=== PATIENT | female | born 1990 | race Caucasian/White ===

== ENCOUNTER 2016-10-29 12:29 | Emergency (ER) | payer SELFPAY ==
[~2016-10-29] VITALS: Wt 57.5 kg
[2016-10-29] MEDS ORDERED: ONDANSETRON (ODT) 4 MG TAB ODT STA (12:51)
--- NOTE | 2016-10-29 13:17 | ERA ---
ER Documentation Chief Complaint Date/Time DATE: 10/29/16 TIME: 13:13 Chief Complaint ABD PAIN, VOMITING WITH BLOOD PER PT, ONSET 4 DAYS HPI Patient has a 5-year-old female presenting for generalized abdominal pain. Patient states that she has chronic ulcers in the stomach. Patient claims to have been admitted to another hospital a few weeks ago but left after administration of pain medication. Patient also complains of nausea. Patient denies any bleeding or change in bowel or bladder habits, fever, unable to tolerate p.o. headache, new rashes, and alcohol or drug abuse. There are no other associated manifestations that the patient complains of. ROS All systems reviewed and are negative except as per history of present illness. Medications Home Meds Active Scripts Pantoprazole* (Pantoprazole*) 20 Mg Tablet.dr, 20 MG PO DAILY for 10 Days, TAB Prov:SURY TARANGO PA-C 10/29/16 Famotidine* (Pepcid*) 20 Mg Tablet, 20 MG PO BID for 4 Days, TAB Prov:SURY TARANGO PA-C 10/29/16 PMhx/Soc Medical and Surgical Hx: pt denies Medical Hx, pt denies Surgical Hx History of Surgery: No Anesthesia Reaction: No Hx Neurological Disorder: No Hx Respiratory Disorders: No Hx Cardiac Disorders: No Hx Psychiatric Problems: No Hx Miscellaneous Medical Probl: No Hx Alcohol Use: No Hx Substance Use: No Hx Tobacco Use: No Smoking Status: Never smoker Physical Exam Vitals Vital Signs Date Time Temp Pulse Resp B/P Pulse Ox O2 Delivery O2 Flow Rate FiO2 10/29/16 12:32 98.2 82 17 142/68 98 Physical Exam Const: Ill-appearing 25-year-old female in no acute distress. Head: Atraumatic Eyes: Normal Conjunctiva ENT: Normal External Ears, Nose and Mouth. Neck: Full range of motion..~ No meningismus. Resp: Clear to auscultation bilaterally Cardio: Regular rate and rhythm, no murmurs Abd: Soft, no tenderness to palpation, non distended. Normal bowel sounds. Skin: Rash in the lower abdomen. Striae in the lower abdomen. Back: No midline or flank tenderness Ext: No cyanosis, or edema Neur: Awake and alert Psych: Normal Mood and Affect Result Diagram: 10/29/16 1325 10/29/16 1325 Results 24 hrs Laboratory Tests Test 10/29/16 13:23 10/29/16 13:25 Bedside Urine pH (LAB) 5.5 Bedside Urine Protein (LAB) 1+ Bedside Urine Glucose (UA) Negative Bedside Urine Ketones (LAB) Trace Bedside Urine Blood 2+ Bedside Urine Nitrite (LAB) Negative Bedside Urine Leukocyte Esterase (L Negative White Blood Count 11.310^3/ul Red Blood Count 4.5010^6/ul Hemoglobin 13.1g/dl Hematocrit 39.6% Mean Corpuscular Volume 88.0fl Mean Corpuscular Hemoglobin 29.1pg Mean Corpuscular Hemoglobin Concent 33.1g/dl Red Cell Distribution Width 13.9% Platelet Count 04070^3/UL Mean Platelet Volume 10.6fl Neutrophils % 67.7% Lymphocytes % 22.6% Monocytes % 6.7% Eosinophils % 2.3% Basophils % 0.4% Nucleated Red Blood Cells % 0.0/100WBC Neutrophils # 7.610^3/ul Lymphocytes # 2.510^3/ul Monocytes # 0.810^3/ul Eosinophils # 0.310^3/ul Basophils # 0.010^3/ul Nucleated Red Blood Cells # 0.010^3/ul Sodium Level 141mmol/L Potassium Level 3.4mmol/L Chloride Level 102mmol/L Carbon Dioxide Level 25mmol/L Anion Gap 17 Blood Urea Nitrogen 14mg/dl Creatinine 0.58mg/dl Glucose Level 99mg/dl Calcium Level 9.1mg/dl Total Bilirubin 0.6mg/dl Direct Bilirubin 0.00mg/dl Indirect Bilirubin 0.6mg/dl Aspartate Amino Transf (AST/SGOT) 23IU/L Alanine Aminotransferase (ALT/SGPT) 26IU/L Alkaline Phosphatase 103IU/L Total Protein 7.5g/dl Albumin 4.3g/dl Globulin 3.20g/dl Albumin/Globulin Ratio 1.34 Current Medications Medications (Trade) Dose Ordered Sig/Yamini Route PRN Reason Start Time Stop Time Status Last Admin Dose Admin Ondansetron HCl (Zofran Odt) 4 mg ONCE STAT ODT 10/29/16 12:51 10/29/16 12:55 DC 10/29/16 13:18 Miscellaneous Medication (Gi Cocktail (2)) 40 ml ONCE ONCE PO 10/29/16 14:30 10/29/16 14:31 Famotidine (Pepcid) 20 mg ONCE ONCE PO 10/29/16 14:30 10/29/16 14:31 Procedures/MDM Patient is a 25-year-old male complaining of abdominal pain. Patient says she has a chronic history of abdominal pain. Patient was seen and admitted at another hospital a few weeks ago and left before complete evaluation was done. Patient denies any bleeding from the rectum or urinary tract. Patient denies anorexia. Patient was not tender to palpation. Patient had a rash over the lower abdomen/upper pelvis. We will go ahead and get labs to make sure that the patient is not in any immediate danger of bleeding from the GI tract. Spoke to Dr. Miguel and upon reevaluation patient had a history of abdominal pain lasting only 1 week history of "chronic" abdominal pain spanning only 2-4 weeks. Patient has taken no other medications at home. We will go ahead and give the patient medication for symptom relief. The hospital and then discharge with a prescription for an acid stewart and proton pump inhibitor for symptom relief. Have advised the patient that she should see a primary care provider in the next 1-3 days for further evaluation and chronic management of her condition. Departure Condition: Stable Additional Instructions: See a primary care provider in the next 1-3 days. Return to emergency department if symptoms worsen. SURY TARANGO PA-C Oct 29, 2016 13:17
[2016-10-29 13:23] LABS: URINE BLOOD (Dip) POC 2+ (NEGATIVE)
[2016-10-29 13:33] LABS: ADD SCAN DIFF NO
[2016-10-29 13:35] LABS: BASOPHILS % 0.4 % (0.0-2.0); EOSINOPHILS # 0.3 10^3/ul (0.0-0.5); EOSINOPHILS % 2.3 % (0.0-7.0); HEMATOCRIT 39.6 % (37.0-47.0); HEMOGLOBIN 13.1 g/dl (12.0-16.0); LYMPHOCYTES # 2.5 10^3/ul (0.8-2.9); LYMPHOCYTES % 22.6 % (15.0-51.0); MEAN CORPUSCULAR HEMOGLOBIN 29.1 pg (29.0-33.0); MEAN CORPUSCULAR HGB CONC 33.1 g/dl (32.0-37.0); MEAN PLATELET VOLUME 10.6 fl (7.4-10.4); MONOCYTE # 0.8 10^3/ul (0.3-0.9); MONOCYTES % 6.7 % (0.0-11.0); NEUTROPHIL # 7.6 10^3/ul (1.6-7.5); NEUTROPHILS % 67.7 % (39.0-77.0); PLATELET COUNT 353 10^3/UL (140-415); RED CELL DISTRIBUTION WIDTH 13.9 % (11.5-14.5); WHITE BLOOD COUNT 11.3 10^3/ul (4.8-10.8)
[2016-10-29 13:49] LABS: ALBUMIN 4.3 g/dl (3.3-4.9)
[2016-10-29 13:50] LABS: POTASSIUM 3.4 mmol/L (3.5-5.1)
[2016-10-29 13:52] LABS: BILIRUBIN,INDIRECT 0.6 mg/dl (0-1.1); BILIRUBIN,TOTAL 0.6 mg/dl (0.2-1.3); CALCIUM 9.1 mg/dl (8.4-10.2); CREATININE 0.58 mg/dl (0.44-1.00); TOTAL PROTEIN 7.5 g/dl (6.1-8.1)
[2016-10-29 13:53] LABS: ALBUMIN/GLOBULIN RATIO 1.34
[2016-10-29] MEDS ORDERED: PANT20TA3 PO (14:22)
[2016-10-29] MEDS ORDERED: FAMO-18 PO (14:22)
[2016-10-29] MEDS ORDERED: FAMOTIDINE 20 MG TAB PO ONE (14:30)
[2016-10-29] MEDS ORDERED: LIDOCAINE/MYLANTA 40 ML BTL PO ONE (14:30)
== END 2016-10-29 14:35 | disposition home or self-care (01) ==
LOC: FTE 12:29
DX: R10.84 Generalized abdominal pain (principal); R11.10 Vomiting, unspecified
CPT/HCPCS: 80053; 81003; 85025; 99283